=== PATIENT | male | born 1985 | race Caucasian/White ===

== ENCOUNTER → 2017-12-03 | Day surgery (SDC) | payer OTHER ==
[~2017-12-03] VITALS: Ht 190.5 cm; Wt 129.3 kg
[~2017-12-03] MED LIST: ACET-687 PO; ANCEF IV ONE; ANCEF IV STA; BOOSTRIX VACCINE SYRINGE IM STA; CEPH-350 PO; D5W IV ONE; LIDOCAINE 2% VIAL ONE; MORPHINE SULFATE IV PRN; MORPHINE SULFATE IV STA; MORPHINE SULFATE ONE; NORCO 5MG PO PRN; NS 1000ML 1,000 ML IV STA; NS 1000ML 1,000 ML ONE; SENSORCAINE-MPF 0.25% VIAL ONE; SENSORCAINE-MPF 0.5% VIAL ONE; SODIUM CHLORIDE IR ONE; SUBLIMAZE ONE; VERSED IV STA; VERSED ONE; ZOFRAN IV STA; ZOFRAN ODT ONE
--- NOTE | 2017-12-03 09:38 | NUR ---
ARRIVAL PATIENT ARRIVED TO ED[facility] AMBULATORY WITH CO WORKER, C/O OF LEFT INDEX FINGER INJURY, PATIENT STATES HE WAS USING EQUIPMENT, WHEN HE GO HIS LEFT INDEX FINGER CAUGHT BETWEEN TO PIECES OF EQUIPMENT, WAS SENT TO THE ED FOR EVALUATION, DEFORMITY NOTED, FINGER PLACED IN BETADINE AND STERILE WATER,DOCTOR ISABEL TO ROOM, ORDERS RECEIVED.
--- NOTE | 2017-12-03 09:40 | ER.PDOC ---
General Chief Complaint: Requesting Medical Care Stated Complaint: WC;INJURED LFT HAND Time seen by MD: 09:34 Source: patient Exam Limitations: no limitations History of Present Illness Initial Comments Pain and laceration to left index finger from smashing with a metal. Occurred: just prior to arrival Where: work Severity: moderate Context: crush Modifying Factors: pain on movement Allergies: Coded Allergies: No Known Allergies (Unverified , 12/03/17) Home Meds No Active Prescriptions or Reported Meds Review of Systems Constitutional: no symptoms reported Respiratory: no symptoms reported Cardiovascular: no symptoms reported Gastrointestinal: no symptoms reported Musculoskeletal: see HPI Skin: see HPI All Other Systems: Reviewed and Negative Physical Exam General Appearance: Alert, No Apparent Distress Hand: tenderness (left index finger with laceration) Wrist: nml inspection, non-tender, nml ROM Neuro: sensation nml, motor nml Vascular: no vascular compromise Tendons: tendon function nml Forearm/Elbow/Arm: uninjured above wrist Head/ENT: nml inspection, pharynx nml Neck/Back: nml inspection, non-tender Resp/CVS: no resp distress, lungs clear, heart sounds nml, reg. rate & rhythm Abdomen: non-tender, no organomegaly Results/Orders Results/Orders Administered Medications Medications (Trade) Dose Ordered Sig/Abraham Route PRN Reason Start Time Stop Time Status Last Admin Dose Admin Morphine Sulfate (Morphine Sulfate) 5 mg STAT STAT IV 12/03/17 09:47 12/03/17 09:49 DC 12/03/17 09:52 Ondansetron HCl (Zofran) 4 mg STAT STAT IV 12/03/17 09:47 12/03/17 09:49 DC 12/03/17 09:52 Sodium Chloride 1,000 ml @ 1,200 mls/hr Q50M STAT IV 12/03/17 09:47 12/03/17 10:36 12/03/17 09:52 Cefazolin Sodium (Ancef) 1 gm STAT STAT IV 12/03/17 09:52 12/03/17 09:53 DC 12/03/17 09:54 EKG/XRAY/CT/US XRAY Comments: Communited and displaced fracture right middle finger Departure Time of Disposition: 10:01 Disposition: 09 ADMITTED INPATIENT Impression: Primary Impression: Fracture of finger of left hand Qualified Codes: S62.621B - Displaced fracture of middle phalanx of left index finger, initial encounter for open fracture Condition: Stable Referrals: PCP,UNKNOWN (PCP) PRIMARY CARE PROVIDER Scripts No Active Prescriptions or Reported Meds Comments Patient taken to the OR by Dr. Espinoza Duration or Time Spent with Pa: 40 mins ISABEL,FER Parr MD Dec 03, 2017 09:40
--- NOTE | 2017-12-03 09:49 | NUR ---
DR ROBLES LOWE MBA ON PHONE WITH DR ARBOLEDA
--- NOTE | 2017-12-03 09:55 | DIREP ---
PROCEDURE:XRAY [id number] finger three views COMPARISON:None. INDICATIONS:Pain, metal fell on it FINDINGS: BONES:There is a comminuted and displaced fracture of the middle phalanx of the 2nd finger. No other fracture is seen. JOINTS:Normal. SOFT TISSUES:Soft tissue swelling with soft tissue injury is seen of the 2nd finger. OTHER:No additional findings. CONCLUSION:There is a comminuted and displaced fracture of the middle phalanx of the 2nd finger. Dictated by: Noel Chowdary M.D. on 12/03/2017 at 09:53 AM
--- NOTE | 2017-12-03 10:12 | NUR ---
SANDY ELIZABETH AT BEDSIDE TALKING WITH PATIENT.
--- NOTE | 2017-12-03 10:15 | NUR ---
WOUND FINGER COVERED WITH 4X4 AND KERLEX, SECURED WITH TAPE. PATIENT TOLERATED WELL.
--- NOTE | 2017-12-03 10:32 | NUR ---
OUTPUT APPROX 50CC FROM ANCEF AND APPROX 300CC OF NORMAL SALINE IN, PATIENT TRANSFER TO DAY SURGERY VIA W/C, NO CHANGE FROM INTITIAL ASSESSMENT.
[2017-12-03 12:46] VITALS: BP 143/95
[2017-12-03 13:01] VITALS: BP 131/80
[2017-12-03 13:16] VITALS: BP 141/74
[2017-12-03 13:20] VITALS: BP 143/95
--- NOTE | 2017-12-03 15:04 | OPH ---
DATE OF SURGERY: 12/03/2017 PREOPERATIVE DIAGNOSIS: Grade 2 open fracture of left index finger, middle phalanx. POSTOPERATIVE DIAGNOSIS: Grade 2 open fracture of left index finger, middle phalanx. OPERATIVE PROCEDURES: 1. Incision and debridement with irrigation of the left index finger with debridement of skin and subcutaneous tissue. 2. Open-reduction internal-fixation of left index finger, middle phalanx. SURGEON: Vishnu Espinoza MD ANESTHESIA: Digital block by myself TOURNIQUET TIME: 28 minutes ESTIMATED BLOOD LOSS: 20 mL DESCRIPTION OF INDICATIONS: The patient is a 32-year-old right hand-dominant male who was at work today and got his left index finger crushed by a pipe. He was initially seen in the Emergency Room here in [place] where an exam showed that he had a large stellate complex laceration about the volar aspect of the index finger, with a displaced comminuted fracture of the proximal phalanx. He was given IV Ancef and a tetanus shot in the Emergency Room and taken to the operating room for the above procedures. DESCRIPTION OF PROCEDURE: The patient was placed on the operating table in the supine position. The finger was blocked with 2% lidocaine plain about the metacarpal head. The wound was then sterilely prepped and draped. The patient initially had the wound copiously irrigated with saline. We used a quarter inch [place] drain about the base of the finger to control the bleeding. The patient then was noted to have, again, a very complex stellate-type laceration about the middle phalanx. The flexor tendons were exposed. He had a laceration of the skin and subcutaneous tissue as well as some of the pulleys. The wound was debrided off any skin and subcutaneous tissue that did not appear to be viable. We then copiously irrigated the wound again and then closed as much of the soft tissue as we could with some 3-0 Ethilon. There was a central portion of the wound that could not be sutured because of the severe degree of soft tissue loss. There was a second wound more distal to the initial wound that was irrigated and debrided and then closed with 3-0 Ethilon. The patient then had the tourniquet released. The fracture was reduced. We placed two 0.035 K-wires from distal to proximal. We also placed a single K-wire medially and laterally because of a vertical split in the proximal portion of the fracture. Final AP and lateral C-arm views showed satisfactory positioning of the pins with a satisfactory reduction of the fracture. The wounds were then again copiously irrigated. A sterile compressive dressing was applied. The patient was then sent to recovery in a stable condition. Vishnu Espinoza MD DR: LOLY/carson JOB# [id number]
--- NOTE | 2017-12-03 16:30 | DIREP ---
PROCEDURE:XRAY FINGER-LT COMPARISON:None. INDICATIONS:ORIF FINGER TECHNIQUE:Three views of the left 3rd finger FINDINGS: BONES:Interval placement of 3 Eusebia wires in the middle 2nd phalange. The alignment of the comminuted fracture is anatomic. JOINTS:Normal. SOFT TISSUES:Normal. OTHER:No additional findings. CONCLUSION:Interval placement of 3 pins stabilizing the fracture of the 2nd finger in anatomic alignment Dictated by: Bronwyn Prince M.D. on 12/03/2017 at 04:28 PM
== END | disposition home or self-care (01) ==
LOC: ER 09:21 → SDC 09:56
PROVIDERS: ATTEND Orthopaedic Surgery
DX: S62.621B Displaced fracture of middle phalanx of left index finger, initial encounter for open fracture (principal); X58.XXXA Exposure to other specified factors, initial encounter; Y93.89 Activity, other specified; Y92.89 Other specified places as the place of occurrence of the external cause; Y99.8 Other external cause status
CPT/HCPCS: 11012; 26735; 73140 ×2; 76000; 96361; 96374; 96375; 99285; A4649 ×2; J0690; J2001; J2250; J2270; J3010; J3490 ×2; J7030 ×3; Q0162; C1713